=== PATIENT | male | born 1945 | race Caucasian/White ===

== ENCOUNTER 2016-12-01 10:01 | Emergency (ER) | payer MEDICARE ==
[2016-12-01 11:19] VITALS: BP 94/50
--- NOTE | 2016-12-01 11:47 | UC ---
Throat Pain/Nasal Cristóbal HPI - HPI Summary HPI Summary: patient stated he had diarrhea the past few days, but states that he is here because he is having sinus pressure and starting to get s sore throat. spitting up alot of phlegm - History of Current Complaint Chief Complaint: UCRespiratory Stated Complaint: WEAK, CHEST CONGESTION Time Seen by Provider: 12/01/16 11:37 Hx Obtained From: Patient Onset/Duration: Sudden Onset, Lasting Days Severity: Moderate Pain Intensity: 6 Pain Scale Used: 0-10 Numeric Cough: Productive Associated Signs & Symptoms: Positive: Dysphagia, Sinus Discomfort, Nasal Discharge - Epiglottits Risk Factors Epiglottis Risk Factors: Negative - Allergies/Home Medications Allergies/Adverse Reactions: Allergies Allergy/AdvReac Type Severity Reaction Status Date / Time Naproxen [From Aleve] Allergy Unknown Hives Verified 08/23/16 11:18 PMH/Surg Hx/FS Hx/Imm Hx Previously Healthy: Yes Endocrine History Of: Denies: Diabetes, Thyroid Disease Cardiovascular History Of: Reports: Cardiac Disorders - Aug 22 2013, triple bypass, Hypertension, Myocardial Infarction, Congestive Heart Failure Denies: Pacemaker/ICD Respiratory History Of: Reports: COPD, Asthma - Exercise Induced, Bronchitis GI/ History Of: Reports: Ulcer, Gastrointestinal Bleed, Renal Disease - Hx chronic renal disease Psychological History Of: Reports: Anxiety, Depression - Surgical History Surgical History: Yes Surgery Procedure, Year, and Place: 3 Back Surgeries; Open Heart Surgery; Inguinal Hernia Repair. AV Fistuala right forearm. 07/10/2016 blood clot removal right lower arm. 07/14/2016 temp arterial fistula neck, closure of right arm fistula - Family History Known Family History: Positive: None, Other - mother at age 72 from lung cancer, father HD, at 72 - Social History Alcohol Use: Occasionally Alcohol Amount: 4-5 days of week, 2-3 drinks at a time Substance Use Type: None, Prescribed Smoking Status (MU): Former Smoker Type: Cigarettes Amount Used/How Often: quit 06/2013 Length of Time of Smoking/Using Tobacco: 25 YEARS Have You Smoked in the Last Year: No When Did the Patient Quit Smoking/Using Tobacco: 06/2013 - Immunization History Most Recent Influenza Vaccination: 2014 Most Recent Tetanus Shot: 2011 Most Recent Pneumonia Vaccination: 2013 Review of Systems Constitutional: Fever Skin: Negative Eyes: Negative ENT: Sore Throat, Ear Ache, Nasal Discharge Respiratory: Cough Cardiovascular: Negative Gastrointestinal: Negative Genitourinary: Negative Motor: Negative Neurovascular: Negative Musculoskeletal: Negative Neurological: Negative Psychological: Negative All Other Systems Reviewed And Are Negative: Yes Physical Exam Triage Information Reviewed: Yes Appearance: Well-Nourished, Ill-Appearing, Pain Distress Vital Signs: Initial Vital Signs Temp 97.8 F 12/01/16 11:14 Pulse 63 12/01/16 11:14 Resp 16 12/01/16 11:14 BP 94/50 12/01/16 11:14 Pulse Ox 100 12/01/16 11:14 Vital Signs Reviewed: Yes Eye Exam: Normal Eyes: Positive: Conjunctiva Inflamed ENT: Positive: Pharyngeal erythema, Nasal congestion, Nasal drainage, TM bulging , Tonsillar swelling, Tonsillar exudate Dental Exam: Normal Neck exam: Normal Neck: Positive: Supple, Nontender, No Lymphadenopathy Respiratory Exam: Normal Respiratory: Positive: Chest non-tender, Lungs clear, Normal breath sounds, No respiratory distress Cardiovascular Exam: Normal Cardiovascular: Positive: RRR, No Murmur, Pulses Normal Abdomen Description: Positive: Nontender, No Organomegaly, Soft Bowel Sounds: Positive: Present Musculoskeletal Exam: Normal Musculoskeletal: Positive: Strength Intact, ROM Intact, No Edema Neurological: Positive: Alert, Muscle Tone Normal Psychological: Positive: Normal Response To Family Skin Exam: Normal Throat Pain/Nasal Course/Dx - Course Course Of Treatment: hx obtained, medication reviewed, exam performed, medication given for sinusitis - Differential Dx/Diagnosis Differential Diagnosis/HQI/PQRI: Pharyngitis, Sinusitis Provider Diagnoses: sinusitis. pharyngitis Discharge - Discharge Plan Condition: Stable Disposition: HOME Patient Education Materials: Sinusitis (ED) Additional Instructions: take the medication as prescribed. increase your fluid intake. take the medication with food.
== END 2016-12-01 12:20 | disposition home or self-care (01) ==
LOC: UCEAST 10:01
DX: J01.90 Acute sinusitis, unspecified (principal); B96.89 Other specified bacterial agents as the cause of diseases classified elsewhere; J02.9 Acute pharyngitis, unspecified; Z87.891 Personal history of nicotine dependence; I10 Essential (primary) hypertension; Z95.1 Presence of aortocoronary bypass graft; I25.2 Old myocardial infarction
CPT/HCPCS: 99212; G0463

== ENCOUNTER 2016-12-07 11:48 | Emergency (ER) | payer MEDICARE ==
[2016-12-07 13:08] VITALS: BP 104/58
--- NOTE | 2016-12-07 13:25 | UC ---
Respiratory Complaint HPI - HPI Summary HPI Summary: This is a 71 yo male with a h/o CAD and ESRD on HD who presented with c/o cough/ congestion. Patient was seen ~1 week ago [address] a [address] and sinus congestion and received amoxicillin and prednisone for sinusitis and pharyngitis, which he completed. He feels like his symptoms have "settled in his chest". He denies dyspnea. Reports productive cough. No fevers. No GI c/os - History of Current Complaint Chief Complaint: UCRespiratory Stated Complaint: SINUS COMPLAINT - Allergies/Home Medications Allergies/Adverse Reactions: Allergies Allergy/AdvReac Type Severity Reaction Status Date / Time Naproxen [From Aleve] Allergy Unknown Hives Verified 08/23/16 11:18 PMH/Surg Hx/FS Hx/Imm Hx Endocrine History Of: Denies: Diabetes, Thyroid Disease Cardiovascular History Of: Reports: Cardiac Disorders - Aug 22 2013, triple bypass, Hypertension, Myocardial Infarction, Congestive Heart Failure Denies: Pacemaker/ICD Respiratory History Of: Reports: COPD, Asthma - Exercise Induced, Bronchitis GI/ History Of: Reports: Ulcer, Gastrointestinal Bleed, Renal Disease - ESRD on HD Psychological History Of: Reports: Anxiety, Depression - Surgical History Surgical History: Yes Surgery Procedure, Year, and Place: 3 Back Surgeries; Open Heart Surgery; Inguinal Hernia Repair. AV Fistuala right forearm. 07/10/2016 blood clot removal right lower arm. 07/14/2016 temp arterial fistula neck, closure of right arm fistula - Family History Known Family History: Positive: Other - mother at age 72 from lung cancer, father HD, at 72 - Social History Alcohol Use: Occasionally Alcohol Amount: 4-5 days of week, 2-3 drinks at a time Substance Use Type: None, Prescribed Smoking Status (MU): Former Smoker Type: Cigarettes Amount Used/How Often: quit 06/2013 Length of Time of Smoking/Using Tobacco: 25 YEARS Have You Smoked in the Last Year: No When Did the Patient Quit Smoking/Using Tobacco: 06/2013 - Immunization History Most Recent Influenza Vaccination: 2014 Most Recent Tetanus Shot: 2011 Most Recent Pneumonia Vaccination: 2013 Review of Systems Constitutional: Negative Skin: Negative Eyes: Negative ENT: Negative Respiratory: Cough Cardiovascular: Negative Gastrointestinal: Negative Genitourinary: Negative Motor: Negative Neurovascular: Negative Musculoskeletal: Negative Neurological: Negative Psychological: Negative All Other Systems Reviewed And Are Negative: Yes Physical Exam Triage Information Reviewed: Yes Vital Signs: Initial Vital Signs Temp 97.7 F 12/07/16 13:03 Pulse 66 12/07/16 13:03 Resp 16 12/07/16 13:03 BP 104/58 12/07/16 13:03 Pulse Ox 98 12/07/16 13:03 Vital Signs Reviewed: Yes ENT: Positive: Normal ENT inspection Respiratory: Positive: Rhonchi, Wheezing, Other: - lung sounds worse on R posterior camarena. Negative: Crackles Cardiovascular: Positive: RRR, Murmur:Sys:Grade _?_/ - 3 Diagnostic Evaluation - Laboratory O2 Sat by Pulse Oximetry: 98 - Radiology Xray Interpretation: No Acute Changes Radiology Interpretation Completed By: ED Physician, Radiologist Re-Evaluation - Re-Evaluation First Eval Re-Evaluation Time: 14:00 Change: Unchanged Comment: Reviewed results of Xray Respiratory Course/Dx - Course Course Of Treatment: Based on history and lung exam findings with negative CXR, will treat for acute bronchitis with prn albuterol and a medrol dose eliana. No additional abx are indicated, likely a viral process - Differential Dx/Diagnosis Differential Diagnosis/HQI/PQRI: Asthma, Bronchitis, Exacerbation Of COPD, Lower Resp Infection Provider Diagnoses: 1. Acute bronchitis Discharge - Discharge Plan Condition: Stable Disposition: HOME Prescriptions: Albuterol Sulfate [Proventil Hfa] 2 puff IN Q4H PRN #1 aer PRN Reason: cough/SOB Methylprednisolone [Medrol Dosepak 4 MG*] 0 mg PO .SEE ELIANA INSTRUCTION #1 eliana Patient Education Materials: Acute Bronchitis (ED) Referrals: Jimbo Diaz MD [Primary Care Provider] - If Needed Additional Instructions: Activity: As tolerated Instructions: 1. Your chest Xray shows no pneumonia 2. You are being treated for a bronchitis 3. Please take the steroids as directed 4. Use the inhaler as needed if you are coughing, especially before bed
--- NOTE | 2016-12-07 13:44 | RAD ---
INDICATION: Cough and congestion COMPARISON: November 09, 2013 TECHNIQUE: PA and lateral dual-energy views were obtained. FINDINGS: Bones/Soft Tissues: There are no acute bony findings. There is left shoulder arthroplasty. There is sternotomy. Cardiomediastinal: The cardiomediastinal silhouette is normal. Lungs: There are no infiltrates. Pleura: There are no pleural effusions. Other: None IMPRESSION: POSTOPERATIVE CHANGE. NO ACTIVE DISEASE.
== END 2016-12-07 14:10 | disposition home or self-care (01) ==
LOC: UCEAST 11:48
DX: J20.9 Acute bronchitis, unspecified (principal); J44.9 Chronic obstructive pulmonary disease, unspecified; J45.990 Exercise induced bronchospasm; I12.0 Hypertensive chronic kidney disease with stage 5 chronic kidney disease or end stage renal disease; N18.6 End stage renal disease; Z99.2 Dependence on renal dialysis; K28.9 Gastrojejunal ulcer, unspecified as acute or chronic, without hemorrhage or perforation; I25.2 Old myocardial infarction; I25.10 Atherosclerotic heart disease of native coronary artery without angina pectoris; Z95.1 Presence of aortocoronary bypass graft; I50.9 Heart failure, unspecified; F41.9 Anxiety disorder, unspecified; F33.8 Other recurrent depressive disorders; Z87.891 Personal history of nicotine dependence
CPT/HCPCS: 71020; 99201; G0463

== ENCOUNTER 2018-06-06 11:12 | Emergency (ER) | payer MEDICARE ==
--- NOTE | 2018-06-06 12:18 | ED ---
Shortness of Breath - HPI Summary HPI Summary: 72-year-old male presents with shortness of breath for the past couple days. He states shortness breath is worst at night. He denies sleeping on any more pillows than normal. He denies any pain or swelling in his calf muscles. He is on dialysis 3 times a week. He has dialysis done today. States dialysis has not improved his shortness breath. Shortness of breath is also worse with exertion. He has no shortness of breath at rest. No chest pain. No abdominal pain. No nausea or vomiting. Never had this before. He was a smoker for 20 years. He did use his inhaler last night and thinks that it felt better afterwards. No cough. No recent illness. No fevers. He has history of COPD per chart. - History of Current Complaint Chief Complaint: EDShortnessOfBreath Time Seen by Provider: 06/06/18 11:49 - Allergy/Home Medications Allergies/Adverse Reactions: Allergies Allergy/AdvReac Type Severity Reaction Status Date / Time MS Naproxen [From Aleve] Allergy Unknown Hives Verified 08/23/16 11:18 Home Medications: Home Medications Aspirin EC TAB* [Ecotrin EC Low Dose 81 MG*] 81 mg PO DAILY 06/06/18 [History Confirmed 06/06/18] Lanthanum CHEW TAB* [Fosrenol CHEW TAB*] 500 mg PO TID WITH MEALS 06/06/18 [ History Confirmed 06/06/18] Midodrine (NF) 10 mg PO SEE INSTRUCTIONS 06/06/18 [History Confirmed 06/06/18] Pravastatin (NF) [Pravachol (NF)] 20 mg PO QPM 06/06/18 [History Confirmed 06/06] Pravastatin (NF) [Pravachol (NF)] 40 mg PO QPM 06/06/18 [History Confirmed 06/06] Sertraline* [Zoloft*] 25 mg PO DAILY 06/06/18 [History Confirmed 06/06/18] Sertraline* [Zoloft*] 50 mg PO QAM 06/06/18 [History Confirmed 06/06/18] Sevelamer TAB* [Renvela TAB*] 2,400 mg PO TID WITH MEALS 06/06/18 [History Confirmed 06/06/18] Sodium Polystyrene Sulfon/Sorb [Sps] 15 gm PO SEE INSTRUCTIONS 06/06/18 [ History Confirmed 06/06/18] Tamsulosin CAP* [Flomax CAP*] 0.4 mg PO BID 06/06/18 [History Confirmed 06/06/18 ] PMH/Surg Hx/FS Hx/Imm Hx Endocrine/Hematology History: Reports: Hx Blood Transfusions, Hx Anemia Denies: Hx Diabetes, Hx Thyroid Disease Cardiovascular History: Reports: Hx Angina, Hx Congestive Heart Failure, Hx Coronary Artery Disease - S/P TRIPLE BYPASS 08/23/13, Hx Hypercholesterolemia, Hx Hypertension, Hx Myocardial Infarction, Hx Valvular Heart Disease - Mitral valve disorder, Other Cardiovascular Problems/Disorders - Triple Bypass Denies: Hx Pacemaker/ICD Respiratory History: Reports: Hx Asthma - Exercise Induced, Hx Chronic Bronchitis, Hx Chronic Obstructive Pulmonary Disease (COPD), Hx Pleural Effusion - BL, Hx Pulmonary Edema - SMALL POCKET OF FLUID LOWER PORTION OF LUNG , STARTED ZPACK, Hx Seasonal Allergies GI History: Reports: Hx Gastroesophageal Reflux Disease, Hx Gastrointestinal Bleed, Hx Irritable Bowel, Hx Ulcer, Other GI Disorders - Duodenal ulcer repair History: Reports: Hx Acute Renal Failure, Hx Benign Prostatic Hyperplasia, Hx Chronic Renal Failure, Hx Dialysis, Hx Renal Disease - ESRD on HD, Other Problems/Disorders - Bladder Infection Musculoskeletal History: Reports: Hx Arthritis, Hx Back Problems, Hx Orthopedic Injury - Several Fx vertebra between 1-12, Hx Osteoporosis, Other Musculoskeletal History - T12 vertebroplasty/L1 compression fx Sensory History: Reports: Hx Contacts or Glasses - Readings Denies: Hx Hearing Aid Opthamlomology History: Reports: Hx Contacts or Glasses - Readings Neurological History: Reports: Other Neuro Impairments/Disorders - Back surgery x3 Psychiatric History: Reports: Hx Anxiety, Hx Depression Denies: Hx Panic Disorder - Surgical History Surgery Procedure, Year, and Place: 3 Back Surgeries; Open Heart Surgery; Inguinal Hernia Repair. AV Fistuala right forearm. 07/10/2016 blood clot removal right lower arm. 07/14/2016 temp arterial fistula neck, closure of right arm fistula Hx Anesthesia Reactions: No - Immunization History Date of Tetanus Vaccine: Up to Date Date of Influenza Vaccine: Up to Date Infectious Disease History: No Infectious Disease History: Denies: Hx Clostridium Difficile, Hx Hepatitis, Hx Human Immunodeficiency Virus (HIV), Hx of Known/Suspected MRSA, Hx Shingles, Hx Tuberculosis, Hx Known/ Suspected VRE, Hx Known/Suspected VRSA, History Other Infectious Disease, Traveled Outside the [place] in Last 30 Days - Family History Known Family History: Positive: Other - mother at age 72 from lung cancer, father HD, at 72 - Social History Alcohol Use: Occasionally Alcohol Amount: 4-5 days of week, 2-3 drinks at a time Substance Use Type: Reports: None Hx Tobacco Use: Yes Smoking Status (MU): Former Smoker Type: Cigarettes Amount Used/How Often: quit 06/2013 Length of Time of Smoking/Using Tobacco: 25 YEARS Have You Smoked in the Last Year: No Review of Systems Negative: Fever Negative: Chest Pain Positive: Shortness Of Breath. Negative: Cough Negative: Abdominal Pain All Other Systems Reviewed And Are Negative: Yes Physical Exam Triage Information Reviewed: Yes Vital Signs On Initial Exam: Initial Vitals Temp Pulse Resp BP Pulse Ox 98.6 F 71 20 145/66 96 06/06/18 11:17 06/06/18 11:17 06/06/18 11:17 06/06/18 11:17 06/06/18 11:17 Vital Signs Reviewed: Yes Appearance: Positive: Well-Appearing Skin: Positive: Warm, Dry Head/Face: Positive: Normal Head/Face Inspection Eyes: Positive: Normal, EOMI, TOÑO, Conjunctiva Clear ENT: Positive: Pharynx normal Respiratory/Lung Sounds: Positive: Breath Sounds Present, Other - crackles present lower lungs Cardiovascular: Positive: Normal, RRR Abdomen Description: Positive: Nontender, Soft Bowel Sounds: Positive: Present Musculoskeletal: Positive: Normal. Negative: Edema Left - no edema noted, Edema Right - no edema noted Neurological: Positive: Normal Psychiatric: Positive: Normal Diagnostics - Vital Signs Vital Signs Temp Pulse Resp BP Pulse Ox 06/06/18 11:17 98.6 F 71 20 145/66 96 - Laboratory Result Diagrams: 06/06/18 12:02 06/06/18 12:02 Lab Statement: Any lab studies that have been ordered have been reviewed, and results considered in the medical decision making process. - Radiology chest Xray Interpretation: Positive (See Comments) - IMPRESSION: POSTOPERATIVE CHANGES. VASCULAR CONGESTION. FINDINGS SUSPICIOUS FOR RIGHT APICAL LUNG MASS. SUGGEST CT IMAGING OF THE CHEST. Radiology Interpretation Completed By: Radiologist - EKG No standard instances Cardiac Rate: NL EKG Rhythm: Sinus Rhythm ST Segment: Normal EKG Interpretation: normal sinus rhythm EKG Comparison: No Significant Change - improved Course/Dx - Course Course Of Treatment: 72-year-old male presents with shortness of breath for the past couple days. He states shortness breath is worst at night. He denies sleeping on any more pillows than normal. He denies any pain or swelling in his calf muscles. He is on dialysis 3 times a week. He has dialysis done today. States dialysis has not improved his shortness breath. Shortness of breath is also worse with exertion. He has no shortness of breath at rest. No chest pain. No abdominal pain. No nausea or vomiting. Never had this before. He was a smoker for 20 years. He did use his inhaler last night and thinks that it felt better afterwards. No cough. No recent illness. No fevers. On exam decreased breath sounds. Crackles in lower lungs. troponin .04 which is were has been. bnp is 4512 which is more elevated that previous. bp is a little low to give nitro paste. chest xray shows possible mass. CT shows nodule that is suspcious for potenital bronchodenic carcinoma. discussed case with dr smith who saw patient and states that can go homeas no SOB currently. has follow up with dr alvarado this week. patient understand and agrees with plan. - Diagnoses Differential Diagnosis/HQI/PQRI: Positive: Bronchitis, CHF, COPD Exacerbation Provider Diagnoses: Shortness of breath, Lung nodule, End stage renal disease, CHF (congestive heart failure) Discharge - Sign-Out/Discharge Documenting (check all that apply): Patient Departure - Discharge Plan Condition: Good Disposition: HOME Patient Education Materials: Shortness of Breath (ED) Referrals: Jimbo Diaz MD [Primary Care Provider] - Cindy Alvarado MD [Medical Doctor] - Additional Instructions: Follow up with dr Alvarado on Wed at 10:30am Return to ED if develop any new or worsening symptoms - Billing Disposition and Condition Condition: GOOD Disposition: Home
[2018-06-06 12:22] LABS: ABS Basophils 0 10^3/ul (0-0.2); ABS Eosinophils 0 10^3/ul (0-0.6); ABS Lymphocytes 0.7 10^3/ul (1.0-4.8); ABS Monocytes 0.5 10^3/ul (0-0.8); ABS Nucleated RBC 0 10^3/ul; Eosinophil % 1.2 % (0-6); Hematocrit 31 % (42-52); Hemoglobin 10.2 g/dl (14.0-18.0); Lymphocyte % 21.7 % (25-47); Mean Corpuscular HGB Conc 33 g/dl (31-36); Mean Corpuscular Hemoglobin 30 pg (27-31); Mean Corpuscular Volume 91 fL (80-94); Mean Platelet Volume 7.9 um3 (7.4-10.4); Nucleated Red Blood Cells % 0.1; Platelet Count 120 10^3/ul (150-450); Red Blood Count 3.38 10^6/ul (4.00-5.40); Red Cell Distribution Width 17 % (10.5-15); White Blood Count 3.3 10^3/ul (3.5-10.8)
[2018-06-06 12:46] LABS: EGFR Non-African American 13.2 (>60)
--- NOTE | 2018-06-06 12:50 | RAD ---
INDICATION: Short of breath COMPARISON: December 07, 2016 TECHNIQUE: PA and lateral dual-energy views were obtained. FINDINGS: Bones/Soft Tissues: There are no acute bony findings. There is sternotomy/CABG. There is left shoulder arthroplasty. Cardiomediastinal: The heart is normal in size. The interstitium is prominent consistent with interstitial congestion.. Lungs: There are findings suspicious for a new, 1.6 cm lung mass. There is no focal consolidation. Diffuse interstitial change. Pleura: There are no pleural effusions. Other: None IMPRESSION: POSTOPERATIVE CHANGES. VASCULAR CONGESTION. FINDINGS SUSPICIOUS FOR RIGHT APICAL LUNG MASS. SUGGEST CT IMAGING OF THE CHEST.
--- NOTE | 2018-06-06 13:56 | RAD ---
INDICATION: Shortness of breath. Concern for potential RIGHT apical lung mass. COMPARISON: June 06, 2018 chest radiograph. TECHNIQUE: Multidetector CT images were obtained from the lung apices to the upper abdomen. Evaluation of the viscera is limited without IV contrast. REPORT: Corresponding with the radiographic finding there is a 1.9 cm maximum dimension spiculated nodule at the apical segment of the RIGHT upper lobe suspicious for a potential bronchogenic carcinoma. No additional suspicious focal pulmonary lesions. Small bilateral dependent pleural effusions with proportional atelectasis. Negative for pneumothorax. Mildly enlarged 1.2 cm short axis subcarinal lymph node. Negative for cardiomegaly. Postsurgical change of coronary artery bypass. Negative for pericardial effusion. Images through the upper abdomen demonstrate normal morphology of the adrenal glands. Moderately severe bilateral renal cortical atrophy and multiple renal cysts noted. Multiple chronic appearing thoracic osteoporotic biconcave compression fractures. Postsurgical change of vertebroplasty at the T12 and L1 levels. No definitive acute thoracic fractures evident. IMPRESSION: #. Corresponding with the radiographic finding there is a 1.9 cm maximum dimension spiculated nodule at the apical segment of the RIGHT upper lobe suspicious for a potential bronchogenic carcinoma. Consider PET CT for further assessment. #. Mildly enlarged subcarinal lymph node.
[2018-06-06 15:04] VITALS: BP 116/76
--- NOTE | 2018-06-06 21:48 | CONS ---
CC: Dr. Diaz; Dr. Tavares * CONSULTATION REPORT: DATE OF CONSULT: 06/06/18 - EMERGENCY DEPT PRIMARY CARE PROVIDER: Dr. Diaz. YARN SIZER: Dr. Tavares. CHIEF COMPLAINT: Shortness of breath. HISTORY OF PRESENT ILLNESS: Mr. Warren is a 72-year-old male who was at dialysis when he mentioned that he was short of breath. Oxygen was applied. He states he felt somewhat better after this. The patient ultimately presented to the emergency room for evaluation of his shortness of breath, but states, " It was not that bad." The patient underwent a CAT scan of the chest in the ER, which revealed a 1.9 cm speculated nodule at the apical segment of the right upper lobe suspicious for a potential bronchogenic carcinoma. A mildly enlarged subcarinal lymph node was also noted. The hospitalist service was asked to see the patient for potential admission. In evaluating the patient, he states that he feels quite good. In fact, he does not want to come into the hospital at this point. The patient states that his shortness of breath is essentially resolved at this point. He is quite concerned about the nodule seen on CAT scan and hopes to have this evaluated quite quickly. PAST MEDICAL HISTORY: Reviewed from prior documentation. SOCIAL HISTORY: The patient is a former smoker. He has approximately 40 to 60 pack-year history of smoking. He quit approximately 5 years ago. PHYSICAL EXAM: Blood pressure 116/76, pulse 68, respirations 15, temp 98.1, O2 sat 92% on room air. General: The patient is a well-developed, elderly male seen sitting up in the stretcher, completely comfortable, not tachypneic and in no acute distress. DIAGNOSTIC STUDIES/LAB DATA: EKG reveals normal sinus rhythm with probable LVH , otherwise negative for acute ST, T-wave abnormalities. Chest x-ray, postoperative changes with vascular congestion. Finding suspicious for right apical lung mass. CT imaging of the chest is recommended. CT chest, there is a 1.9 cm maximum dimension speculated nodule at the apical segment of the right upper lobe suspicious for a potential bronchogenic carcinoma. Consider PET/CT for further assessment. Mildly enlarged subcarinal lymph node is also noted. ASSESSMENT AND PLAN: Mr. Warren is a 72-year-old male with a history of end- stage renal disease, benign prostatic hypertrophy, hyperlipidemia, and depression, who was seen today in the emergency room for initially complaints of shortness of breath, which has essentially now resolved with a new finding of a right apical lung nodule. 1. Shortness of breath. This has essentially resolved. The patient states that he feels comfortable and would like to go home. 2. Speculated lung nodule at the right apex. I spoke with Dr. Curran from Pulmonology, who reviewed the patient's imaging. She felt that he would be an EBUS candidate. The Pulmonology office contacted me in the emergency room and provided an appointment date and time for tomorrow at 10:30 a.m. The patient will meet with Dr. Curran at that point and she will review his history and imaging with him. He will then be set up for EBUS next week. The patient is very happy with this plan. 3. The patient is being discharged home from the emergency room. TIME SPENT: 30 minutes were spent on this consultation and arranging followup with Dr. Curran. [id number]/[facility] #: [id number] NIKKIE
== END 2018-06-06 15:13 | disposition home or self-care (01) ==
LOC: ED 11:12
DX: R06.02 Shortness of breath (principal); R91.1 Solitary pulmonary nodule; I13.2 Hypertensive heart and chronic kidney disease with heart failure and with stage 5 chronic kidney disease, or end stage renal disease; I50.9 Heart failure, unspecified; N18.6 End stage renal disease; Z87.898 Personal history of other specified conditions; J44.9 Chronic obstructive pulmonary disease, unspecified; Z99.2 Dependence on renal dialysis; Z86.718 Personal history of other venous thrombosis and embolism; Z80.1 Family history of malignant neoplasm of trachea, bronchus and lung; Z95.1 Presence of aortocoronary bypass graft; Z88.6 Allergy status to analgesic agent
CPT/HCPCS: 36415; 71046; 71250; 80053; 83605; 83880; 84484; 85025; 86140; 87040; 93005; 99282

== ENCOUNTER 2018-06-15 11:31 | Day surgery (SDC) | payer MEDICARE ==
[~2018-06-15 11:31] MED LIST: Buffered Lidocaine 0.9% SYRIN* 5 ML/SYR SYRINGE INTRADERM ONE; Famotidine IV* 10 MG/ML 2 ML (20 mg) IV ONE; Midazolam* 1 MG/ML 2 ML VIAL (2 MG) ONE; Rocuronium* 10 MG/ML VIAL ONE; Sodium Citrate/Citric Acid* 15 ML UDC PO ONE; fentaNYL* 50 MCG/ML 2 ML VIAL (100 MCG VIAL) ONE
[2018-06-15] MEDS ORDERED: Famotidine IV* 10 MG/ML 2 ML (20 mg) ONE (11:53)
[2018-06-15] MEDS ORDERED: Sodium Citrate/Citric Acid* 15 ML UDC ONE (11:53)
[2018-06-15] MEDS ORDERED: Cisatracurium* 2 MG/ML MDV 5 ML ONE (12:35)
[2018-06-15] MEDS ORDERED: HYDROmorphone INJ* 0.5 MG/0.5 ML SYRINGE IV PRN (13:20)
[2018-06-15] MEDS ORDERED: oxyCODONE TAB* 5 MG TAB PO PRN (13:20)
[2018-06-15] MEDS ORDERED: Naloxone* 0.4 MG/ML 1 ML VIAL IV PRN (13:20)
[2018-06-15] MEDS ORDERED: fentaNYL* 50 MCG/ML 2 ML VIAL (100 MCG VIAL) IV PRN (13:20)
[2018-06-15] MEDS ORDERED: Ondansetron INJ* 2 MG/ML VIAL IV PRN (13:20)
[2018-06-15] MEDS ORDERED: Phenylephrine IV* 40 MCG/ML 10 ML SYRINGE ONE (14:39)
[2018-06-15] MEDS ORDERED: Sterile Water for Inj* 10 ML ONE (14:39)
[2018-06-15] MEDS ORDERED: EPHEDrine (Pressors)* 50 MG/ML VIAL ONE (14:39)
[2018-06-15 16:08] VITALS: BP 107/54
--- NOTE | 2018-06-16 06:31 | PRO ---
BRONCHOSCOPY REPORT: DATE OF PROCEDURE: 06/15/18 [facility] PROCEDURE PERFORMED BY: Cindy Curran MD ANESTHESIA: General anesthesia. ANESTHESIOLOGIST: Dr. Angely Wang. PROCEDURE PERFORMED: Bronchoscopy with endobronchial ultrasound-guided fine needle aspiration from station 7, L4 and R4 lymph nodes. PREPROCEDURAL DIAGNOSES: Lung nodule, mediastinal adenopathy, rule out malignancy. POSTPROCEDURAL DIAGNOSIS: Mediastinal adenopathy. DESCRIPTION OF PROCEDURE: Informed consent was obtained from the patient prior to the procedure after all the risks and benefits were thoroughly explained. The patient recently had a CT scan suggestive of lung nodule and enlarged lymph nodes. Bronchoscopy was scheduled for evaluation of lymphadenopathy. The patient was intubated with size 8.5 endotracheal tube. A flexible Olympus bronchoscope was inserted through ET tube for airway inspection. No endobronchial lesions were noted. Thick white secretions were noted and were suctioned. Bronchoscope was then withdrawn and EBUS bronchoscope was inserted. Station 7 node was enlarged and was sampled with 4 passes. Rapid on-site evaluation revealed lymphatic tissue with no suspicious cells. Station L4 was sampled with 2 passes. Rapid on-site evaluation revealed bronchial cells. No lymphatic tissue was noted. Station R4 lymph node was then accessed with 6 passes. Rapid on-site evaluation revealed blood in most of the passes. No lymphatic tissue was noted on rapid on-site exam. Rest of specimen was placed in CytoLyt. The patient tolerated the procedure well. The patient was extubated and seen in Recovery in optimal condition. We will follow final results. [id number] #: [id number] [facility]
== END 2018-06-15 16:10 | disposition home or self-care (01) ==
LOC: OR 11:31
PROVIDERS: ATTEND Internal Medicine
DX: R59.0 Localized enlarged lymph nodes (principal); R91.8 Other nonspecific abnormal finding of lung field; J98.4 Other disorders of lung; J44.9 Chronic obstructive pulmonary disease, unspecified; Z95.1 Presence of aortocoronary bypass graft; F41.8 Other specified anxiety disorders; E78.5 Hyperlipidemia, unspecified; I12.9 Hypertensive chronic kidney disease with stage 1 through stage 4 chronic kidney disease, or unspecified chronic kidney disease; Z87.891 Personal history of nicotine dependence; I25.10 Atherosclerotic heart disease of native coronary artery without angina pectoris; N18.5 Chronic kidney disease, stage 5; Z99.2 Dependence on renal dialysis; D64.9 Anemia, unspecified; D69.6 Thrombocytopenia, unspecified; Z86.718 Personal history of other venous thrombosis and embolism
CPT/HCPCS: 88172; 88173; 88177; 88305; A9270-GY; J2250; J3010

== ENCOUNTER → 2018-11-25 10:34 | Emergency (ER) | payer MEDICARE ==
--- NOTE | 2018-11-25 11:30 | ED ---
Laceration/Wound HPI - HPI Summary HPI Summary: Patient is a 73-year-old male with history of renal failure presented to the ED with right upper arm fistula bleeding 1 hour at dialysis. He arrives with a hemostat clamp. He states they have been applying pressure 1 hour good relief. He states this happened in the past, however has not needed sutures. On arrival, bleeding is well-controlled. He denies any other symptoms or complaints at this time. - History of Current Complaint Stated Complaint: RT ARM LACERATION Time Seen by Provider: 11/25/18 10:43 Hx Obtained From: Patient Onset/Duration: Sudden Onset Aggravating: Movement Alleviating: Compression Timing: Constant Onset Severity: Mild Current Severity: None Pain Intensity: 0 Pain Scale Used: 0-10 Numeric - Additional Pertinent History Primary Care Physician: EZEKIEL - Allergy/Home Medications Allergies/Adverse Reactions: Allergies Allergy/AdvReac Type Severity Reaction Status Date / Time naproxen Allergy Intermediate Hives Verified 11/25/18 10:43 PMH/Surg Hx/FS Hx/Imm Hx Previously Healthy: Yes - renal failure Endocrine/Hematology History: Reports: Hx Blood Transfusions, Hx Diabetes, Hx Anemia Denies: Hx Thyroid Disease Cardiovascular History: Reports: Hx Angina, Hx Congestive Heart Failure, Hx Coronary Artery Disease - S/P TRIPLE BYPASS 08/23/13, Hx Hypercholesterolemia, Hx Hypertension, Hx Myocardial Infarction, Hx Valvular Heart Disease - Mitral valve disorder, Other Cardiovascular Problems/Disorders - Triple Bypass Denies: Hx Pacemaker/ICD Respiratory History: Reports: Hx Asthma - Exercise Induced IN THE PAST- NONE NOW , Hx Chronic Bronchitis, Hx Chronic Obstructive Pulmonary Disease (COPD), Hx Lung Cancer, Hx Pleural Effusion - BL, Hx Pulmonary Edema - SMALL POCKET OF FLUID LOWER PORTION OF LUNG, STARTED ZPACK, Hx Seasonal Allergies GI History: Reports: Hx Gastroesophageal Reflux Disease, Hx Gastrointestinal Bleed, Hx Irritable Bowel, Hx Ulcer, Other GI Disorders - Duodenal ulcer repair History: Reports: Hx Acute Renal Failure, Hx Benign Prostatic Hyperplasia, Hx Chronic Renal Failure, Hx Dialysis, Hx Renal Disease - ESRD on HD, Other Problems/Disorders - Bladder Infection Musculoskeletal History: Reports: Hx Arthritis, Hx Back Problems, Hx Orthopedic Injury - Several Fx vertebra between 1-12, Hx Osteoporosis, Other Musculoskeletal History - T12 vertebroplasty/L1 compression fx Sensory History: Denies: Hx Contacts or Glasses, Hx Hearing Aid Opthamlomology History: Denies: Hx Contacts or Glasses Neurological History: Reports: Other Neuro Impairments/Disorders - Back surgery x3 Psychiatric History: Reports: Hx Anxiety, Hx Depression Denies: Hx Panic Disorder - Cancer History Cancer Type, Location and Year: right lung with lobectomy upper lobe Hx Chemotherapy: No Hx Radiation Therapy: No - Surgical History Surgery Procedure, Year, and Place: 3 Back Surgeries ; Open Heart Surgery 2012; left Inguinal Hernia Repair 2010. AV Fistuala right forearm. blood clot removal right lower arm. 07/14/2016 temp arterial fistula neck, closure of right arm fistula. left shoulder repair 03/2016. TONSILLECTOMY Hx Anesthesia Reactions: No - Immunization History Date of Tetanus Vaccine: Up to Date Date of Influenza Vaccine: Up to Date Hx Pertussis Vaccination: No Immunizations Up to Date: Yes Infectious Disease History: No Infectious Disease History: Denies: Hx Clostridium Difficile, Hx Hepatitis, Hx Human Immunodeficiency Virus (HIV), Hx of Known/Suspected MRSA, Hx Shingles, Hx Tuberculosis, Hx Known/ Suspected VRE, Hx Known/Suspected VRSA, History Other Infectious Disease, Traveled Outside the in Last 30 Days - Family History Known Family History: Positive: Other - mother at age 72 from lung cancer, father HD, at 72 - Social History Occupation: Unemployed Lives: With Family Alcohol Use: Rare Alcohol Amount: 1-2 wine a week Hx Substance Use: No Substance Use Type: Reports: None Hx Tobacco Use: Yes Smoking Status (MU): Former Smoker Type: Cigarettes Amount Used/How Often: smoked for 20 years 1.5ppd Length of Time of Smoking/Using Tobacco: 25 YEARS Have You Smoked in the Last Year: No Review of Systems Negative: Fever, Chills, Fatigue Negative: Palpitations, Chest Pain Negative: Shortness Of Breath, Cough Genitourinary: Negative Positive: no symptoms reported, see HPI Negative: Arthralgia, Myalgia Positive: Other - fistula in R upper arm - no bleeding Neurological: Negative All Other Systems Reviewed And Are Negative: Yes Physical Exam Triage Information Reviewed: Yes Vital Signs On Initial Exam: Initial Vitals Temp Pulse Resp BP Pulse Ox 97.4 F 66 14 142/66 98 11/25/18 10:42 11/25/18 10:42 11/25/18 10:42 11/25/18 10:42 11/25/18 10:42 Vital Signs Reviewed: Yes Appearance: Positive: Well-Nourished Skin: Positive: Warm, Skin Color Reflects Adequate Perfusion Head/Face: Positive: Normal Head/Face Inspection Eyes: Positive: EOMI Neck: Positive: Supple, No Lymphadenopathy Respiratory/Lung Sounds: Positive: Clear to Auscultation, Breath Sounds Present Cardiovascular: Positive: Pulses are Symmetrical in both Upper and Lower Extremities. Negative: Leg Edema Left, Leg Edema Right Musculoskeletal: Positive: Normal, Strength/ROM Intact Neurological: Positive: Alert, Oriented to Person Place, Time, Speech Normal Psychiatric: Positive: Affect/Mood Appropriate AVPU Assessment: Alert Diagnostics - Vital Signs Vital Signs Temp Pulse Resp BP Pulse Ox 11/25/18 10:54 155/100 11/25/18 10:42 97.4 F 66 14 142/66 98 - Laboratory Lab Statement: Any lab studies that have been ordered have been reviewed, and results considered in the medical decision making process. Laceration Repair Course/Dx - Course Course Of Treatment: On arrival, bleeding is controlled. [place] bandaged 20 minutes. Upon recheck, bleeding continues to be well controlled. He will be discharged home. He is given return precautions for bleeding remains. - Clinical Impression Provider Diagnoses: Hemorrhage of arteriovenous fistula Discharge - Sign-Out/Discharge Documenting (check all that apply): Patient Departure - Discharge Plan Condition: Stable Disposition: HOME Referrals: Jimbo Diaz MD [Primary Care Provider] - Additional Instructions: If bleeding begins - gauze wrap with [place] bandage - applied tight x 30 minutes If this bleeds through or continues to bleed despite this measure - return to the ED - Billing Disposition and Condition Condition: STABLE Disposition: Home
[2018-11-25 11:43] VITALS: BP 138/91
== END | disposition home or self-care (01) ==
LOC: ED 10:34
DX: I77.0 Arteriovenous fistula, acquired (principal); Z87.891 Personal history of nicotine dependence; Z85.118 Personal history of other malignant neoplasm of bronchus and lung
CPT/HCPCS: 99283

== ENCOUNTER 2018-12-23 18:50 | Emergency (ER) | payer MEDICARE ==
[2018-12-23 19:17] VITALS: BP 139/73
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
== END 2018-12-23 19:40 | disposition home or self-care (01) ==
LOC: UCEAST 18:50
DX: L76.34 Postprocedural seroma of skin and subcutaneous tissue following other procedure (principal); N18.6 End stage renal disease; Z99.2 Dependence on renal dialysis; Z88.6 Allergy status to analgesic agent; Z88.8 Allergy status to other drugs, medicaments and biological substances; Z87.891 Personal history of nicotine dependence
CPT/HCPCS: 99212; G0463

== ENCOUNTER 2019-03-06 09:53 | Emergency (ER) | payer MEDICARE ==
[2019-03-06 11:12] VITALS: BP 131/84
--- NOTE | 2019-03-06 11:32 | UC ---
FLU HPI - HPI Summary HPI Summary: 73-year-old male presents with complaints of 2 day history of a nonproductive cough. States he was at dialysis earlier today and they noted that his temperature went from 96 F to 98 F. He is noted some chills over the past 2 days. Denies nasal congestion, nasal discharge, sore throat, chest pain, shortness of breath, abdominal pain, nausea, or vomiting. - History of Current Complaint Chief Complaint: UCGeneralIllness Stated Complaint: CONGESTION / FEVER Time Seen by Provider: 03/06/19 11:26 Hx Obtained From: Patient Pain Intensity: 0 - Allergy/Home Medications Allergies/Adverse Reactions: Allergies Allergy/AdvReac Type Severity Reaction Status Date / Time metoprolol Allergy Intermediate See Comment Verified 03/06/19 11:01 naproxen Allergy Intermediate Hives Verified 03/06/19 11:01 PMH/Surg Hx/FS Hx/Imm Hx Endocrine History: Dyslipidemia Cardiovascular History: Cardiac Disease, Hypertension, Myocardial Infarction GI/ History: Renal Disease - Surgical History Surgical History: Yes Surgery Procedure, Year, and Place: 3 Back Surgeries ; Open Heart Surgery 2012; left Inguinal Hernia Repair 2010. AV Fistuala right forearm. blood clot removal right lower arm. 07/14/2016 temp arterial fistula neck, closure of right arm fistula. left shoulder repair 03/2016. TONSILLECTOMY - Family History Known Family History: Positive: Other - mother at age 72 from lung cancer, father HD, at 72 - Social History Occupation: Works From/At Home Lives: Alone Alcohol Use: Weekly Alcohol Amount: a couple of glasses of wine 3-4 nights a week Substance Use Type: None Smoking Status (MU): Former Smoker Type: Cigarettes Amount Used/How Often: smoked for 20 years 1.5ppd Length of Time of Smoking/Using Tobacco: 25 YEARS Have You Smoked in the Last Year: No When Did the Patient Quit Smoking/Using Tobacco: 06/2013 - Immunization History Most Recent Influenza Vaccination: 2017 Most Recent Tetanus Shot: 2011 Most Recent Pneumonia Vaccination: 2013 Review of Systems All Other Systems Reviewed And Are Negative: Yes Constitutional: Positive: Chills. Negative: Fever Eyes: Negative: Drainage, Eye Redness ENT: Negative: Sore Throat, Ear Ache, Nasal Discharge, Sinus Congestion, Sinus Pain/Tenderness Respiratory: Positive: Cough. Negative: Shortness Of Breath Cardiovascular: Negative: Palpitations, Chest Pain Gastrointestinal: Negative: Abdominal Pain, Vomiting, Diarrhea, Nausea Genitourinary: Positive: Negative Musculoskeletal: Positive: Negative Neurological: Positive: Negative Is Patient Immunocompromised?: No Physical Exam - Summary Physical Exam Summary: GENERAL APPEARANCE: Well developed, well nourished, alert and cooperative, and appears to be in no acute distress. EYES: Conjunctiva clear. No drainage. EARS: External auditory canals and tympanic membranes clear, hearing grossly intact. NOSE: No nasal congestion or discharge. THROAT: Pharynx normal. Tonsils surgically absent. Uvula midline. NECK: Neck supple, non-tender without lymphadenopathy. CARDIAC: Normal S1 and S2. No S3, S4 or murmurs. Rhythm is regular. There is no peripheral edema, cyanosis or pallor. Extremities are warm and well perfused. Capillary refill is less than 2 seconds. Peripheral pulses intact. LUNGS: Clear to auscultation without rales, rhonchi, wheezing or diminished breath sounds. Dry, non-productive cough. ABDOMEN: Positive bowel sounds. Soft, nondistended, nontender. No guarding or rebound. No masses or hepatosplenomegally. MUSKULOSKELETAL: ROM intact to all extremities. No joint erythema or tenderness. Normal muscular development. Normal gait. SKIN: Skin normal color, texture and turgor with no lesions or eruptions. Triage Information Reviewed: Yes Vital Signs: Initial Vital Signs Temp 99 F 03/06/19 11:05 Pulse 70 03/06/19 11:05 Resp 20 03/06/19 11:05 BP 131/84 03/06/19 11:05 Pulse Ox 99 03/06/19 11:05 Vital Signs Reviewed: Yes Diagnostics - Radiology No standard instances Radiology Interpretation Completed By: Radiologist Summary of Radiographic Findings: Order Information: CHEST PA LAT 2 S. Accession Number: [id number]. CPT: 09148. HISTORY: cough. COMPARISONS: October 11, 2013. VIEWS: 4: Frontal dual-energy and lateral views of the chest. FINDINGS: CARDIOMEDIASTINAL SILHOUETTE: The cardiomediastinal silhouette is normal. GUSTAVO: The gustavo are normal. PLEURA: The costophrenic angles are sharp. No pleural abnormalities are noted. LUNG PARENCHYMA: The lungs are clear. ABDOMEN: The upper abdomen is clear. There is no subphrenic gas. BONES AND SOFT TISSUES: The patient is status post median sternotomy, left shoulder arthroplasty, and percutaneous vertebral augmentation. OTHER: None. IMPRESSION: NO ACTIVE CARDIOPULMONARY DISEASE. Flu Course/Dx - Course Course Of Treatment: 73-year-old male presents with complaints of 2 day history of a nonproductive cough. States he was at dialysis earlier today and they noted that his temperature went from 96 F to 98 F. He is noted some chills over the past 2 days. Denies nasal congestion, nasal discharge, sore throat, chest pain, shortness of breath, abdominal pain, nausea, or vomiting. Afebrile. Vital signs stable. Exam was unremarkable except for a dry, nonproductive cough. Chest x-ray showed no acute cardiopulmonary disease. Rapid flu was negative. Recommending symptomatic treatment for an acute bronchitis. He is to follow-up with his primary care provider in 3-5 days if symptoms do not improve. Anticipatory guidance and warning symptoms were reviewed with the patient. Verbalizes understanding and agrees with plan of care. - Differential Dx/Diagnosis Differential Diagnosis/HQI/PQRI: Bronchitis, Influenza, Pneumonia, Upper Respiratory Infection Provider Diagnosis: Acute bronchitis Discharge - Sign-Out/Discharge Documenting (check all that apply): Patient Departure All imaging exams completed and their final reports reviewed: Yes - Discharge Plan Condition: Stable Disposition: HOME Prescriptions: Benzonatate CAP* [Tessalon 100 MG CAP*] 100 mg PO TID PRN #30 cap PRN Reason: Cough Patient Education Materials: Acute Bronchitis (ED) Referrals: Jimbo Diaz MD [Primary Care Provider] - 3 Days Additional Instructions: The chest x-ray performed in the clinic today showed no evidence of pneumonia. Your history and exam are consistent with acute bronchitis which is most often caused by a viral infection. Viral infections do not respond to antibiotics and are limited to the treatment of symptoms. Viral infections typically run their course in 7-10 days. Be aware that the cough with bronchitis may persist for 2-3 weeks even if other symptoms have improved. Get plenty of rest. Drink plenty of fluids. Run a cool mist humidifer in your room at night. Take over the counter acetaminophen (Tylenol) or ibuprofen (Advil, Motrin) according to directions as needed for pain or fever. Take Tessalon Perles 1 cap every 8 hours as needed for cough. Follow up with your primary care provider in 3-5 days if symptoms do not improve. Seek immediate medical attention in the emergency room if you have fever greater than 100.5 F despite taking acetaminophen or ibuprofen, have chest pain , difficulty breathing, or have any worsening of symptoms. - Billing Disposition and Condition Condition: STABLE Disposition: Home - Attestation Statements Provider Attestation: Per institutional requirements, I have reviewed the chart, however, I was not consulted specifically or made aware of this patient by the midlevel provider. I did not personally evaluate, interact with , or disposition this patient.
[2019-03-06 11:41] LABS: Influenza A Molecular NEGATIVE (Negative); Influenza B Molecular NEGATIVE (Negative)
== END 2019-03-06 12:50 | disposition home or self-care (01) ==
LOC: UCEAST 09:53
DX: J20.9 Acute bronchitis, unspecified (principal); E78.5 Hyperlipidemia, unspecified; I13.10 Hypertensive heart and chronic kidney disease without heart failure, with stage 1 through stage 4 chronic kidney disease, or unspecified chronic kidney disease; N18.9 Chronic kidney disease, unspecified; Z99.2 Dependence on renal dialysis; I25.2 Old myocardial infarction; I11.9 Hypertensive heart disease without heart failure; Z88.6 Allergy status to analgesic agent; Z88.8 Allergy status to other drugs, medicaments and biological substances; Z87.891 Personal history of nicotine dependence
CPT/HCPCS: 71046; 99212; G0463

== ENCOUNTER 2019-03-27 10:14 | Emergency (ER) | payer MEDICARE ==
--- NOTE | 2019-03-27 10:55 | ED ---
Complex/Multi-Sys Presentation - HPI Summary HPI Summary: Patient is a 73 y/o M presenting to ED with complaints of bleeding from right fistula. He was at hemodialysis today for treatment when bleeding onset. Patient 's female chiller tender who is present in the room states that bleeding had onset around 50 minutes ago, patient was advised to come to ED for evaluation. He denies dizziness, light-headedness and right hand pain. There is a clamp placed at fistula site. PMHx of diabetes, anemia, angina, CHF, CAD, HLD, HTN, DC, asthma, lung cancer, GERD, GI bleed, acute renal failure, benign prostatic hyperplasia, arthritis, osteoporosis, anxiety, depression. PSHx of back surgery x3, open heart surgery 2013, left inguinal hernia repair, blood clot removal right lower arm. FMHx of lung cancer. He reports weekly alcohol usage, denies substance usage, patient is a former smoker. On triage, pain is denied, nothing is noted to aggravate/alleviate Sx. Home medications and allergies are reviewed. - History Of Current Complaint Chief Complaint: EDBleedingDisorder Hx Obtained From: Patient, Family/Coordinator Of Library Services Onset/Duration: Lasting Minutes - onset around 50 minutes ago, Still Present Timing: Constant, Minutes - onset around 50 minutes ago Severity Currently: None - pain denied Aggravating Factor(s): nothing Alleviating Factor(s): nothing Associated Signs And Symptoms: Positive: Other - POSITIVE - BLEEDING AT RIGHT ARM FISTULA; NEGATIVE - LEFT HAND PAIN, LIGHT-HEADEDNESS. Negative: Dizziness - Allergies/Home Medications Allergies/Adverse Reactions: Allergies Allergy/AdvReac Type Severity Reaction Status Date / Time metoprolol Allergy Intermediate See Comment Verified 03/06/19 11:01 naproxen Allergy Intermediate Hives Verified 03/06/19 11:01 PMH/Surg Hx/FS Hx/Imm Hx Endocrine/Hematology History: Reports: Hx Blood Transfusions, Hx Diabetes, Hx Anemia Denies: Hx Thyroid Disease Cardiovascular History: Reports: Hx Angina, Hx Congestive Heart Failure, Hx Coronary Artery Disease - S/P TRIPLE BYPASS 08/23/13, Hx Hypercholesterolemia, Hx Hypertension, Hx Myocardial Infarction, Hx Valvular Heart Disease - Mitral valve disorder, Other Cardiovascular Problems/Disorders - Triple Bypass Denies: Hx Pacemaker/ICD Respiratory History: Reports: Hx Asthma - Exercise Induced IN THE PAST- NONE NOW , Hx Chronic Bronchitis, Hx Lung Cancer, Hx Pleural Effusion - BL, Hx Pulmonary Edema - SMALL POCKET OF FLUID LOWER PORTION OF LUNG, STARTED ZPACK, Hx Seasonal Allergies Denies: Hx Chronic Obstructive Pulmonary Disease (COPD) GI History: Reports: Hx Gastroesophageal Reflux Disease, Hx Gastrointestinal Bleed, Hx Irritable Bowel, Hx Ulcer, Other GI Disorders - Duodenal ulcer repair History: Reports: Hx Acute Renal Failure, Hx Benign Prostatic Hyperplasia, Hx Chronic Renal Failure, Hx Dialysis, Hx Renal Disease - ESRD on HD, Other Problems/Disorders - Bladder Infection Musculoskeletal History: Reports: Hx Arthritis, Hx Back Problems, Hx Orthopedic Injury - Several Fx vertebra between 1-12, Hx Osteoporosis, Other Musculoskeletal History - T12 vertebroplasty/L1 compression fx Sensory History: Denies: Hx Contacts or Glasses Opthamlomology History: Denies: Hx Contacts or Glasses Neurological History: Reports: Other Neuro Impairments/Disorders - Back surgery x3 Psychiatric History: Reports: Hx Anxiety, Hx Depression Denies: Hx Panic Disorder - Cancer History Cancer Type, Location and Year: right lung with lobectomy upper lobe Hx Chemotherapy: No Hx Radiation Therapy: No - Surgical History Surgery Procedure, Year, and Place: 3 Back Surgeries ; Open Heart Surgery 2012; left Inguinal Hernia Repair 2010. AV Fistuala right forearm. blood clot removal right lower arm. 07/14/2016 temp arterial fistula neck, closure of right arm fistula. left shoulder repair 03/2016. TONSILLECTOMY Hx Anesthesia Reactions: No - Immunization History Date of Tetanus Vaccine: Up to Date Date of Influenza Vaccine: Up to Date Infectious Disease History: No Infectious Disease History: Denies: Hx Clostridium Difficile, Hx Hepatitis, Hx Human Immunodeficiency Virus (HIV), Hx of Known/Suspected MRSA, Hx Shingles, Hx Tuberculosis, Hx Known/ Suspected VRE, Hx Known/Suspected VRSA, History Other Infectious Disease, Traveled Outside the [place] in Last 30 Days - Family History Known Family History: Positive: Other - mother at age 72 from lung cancer, father HD, at 72 - Social History Alcohol Use: Weekly Alcohol Amount: a couple of glasses of wine 3-4 nights a week Hx Substance Use: No Substance Use Type: Reports: None Hx Tobacco Use: Yes Smoking Status (MU): Former Smoker Type: Cigarettes Amount Used/How Often: smoked for 20 years 1.5ppd Length of Time of Smoking/Using Tobacco: 25 YEARS Have You Smoked in the Last Year: No Review of Systems Constitutional: Other - POSITIVE - RIGHT ARM BLEEDING AT FISTULA SITE Musculoskeletal: Other - NEGATIVE - LEFT HAND PAIN Neurological: Other - NEGATIVE - DIZZINESS, LIGHT-HEADEDNESS All Other Systems Reviewed And Are Negative: Yes Physical Exam - Summary Physical Exam Summary: VITAL SIGNS: Reviewed. GENERAL: Patient is a well-developed and nourished male who is lying comfortable in the stretcher. Patient is not in any acute respiratory distress. HEAD AND FACE: No signs of trauma. No ecchymosis, hematomas or skull depressions. No sinus tenderness. EYES: PERRLA, EOMI x 2, No injected conjunctiva, no nystagmus. EARS: Hearing grossly intact. Ear canals and tympanic membranes are within normal limits. MOUTH: Oropharynx within normal limits. NECK: Supple, trachea is midline, no adenopathy, no JVD, no carotid bruit, no c- spine tenderness, neck with full ROM. CHEST: Symmetric, no tenderness at palpation LUNGS: Clear to auscultation bilaterally. No wheezing or crackles. CVS: Regular rate and rhythm, S1 and S2 present, no murmurs or gallops appreciated. ABDOMEN: Soft, non-tender. No signs of distention. No rebound no guarding, and no masses palpated. Bowel sounds are normal. EXTREMITIES: FROM in all major joints, no edema, no cyanosis or clubbing. clamp on right arm fistula, patient has good pulses, good cap refill, patient is neurovascularly intact with no active bleeding. NEURO: Alert and oriented x 3. No acute neurological deficits. Speech is normal and follows commands. SKIN: Dry and warm Triage Information Reviewed: Yes Vital Signs On Initial Exam: Initial Vitals Temp Pulse Resp BP Pulse Ox 97.8 F 63 18 158/80 99 03/27/19 10:18 03/27/19 10:18 03/27/19 10:18 03/27/19 10:18 03/27/19 10:18 Vital Signs Reviewed: Yes Diagnostics - Vital Signs Vital Signs Temp Pulse Resp BP Pulse Ox 03/27/19 10:18 97.8 F 63 18 158/80 99 - Laboratory Lab Statement: Any lab studies that have been ordered have been reviewed, and results considered in the medical decision making process. Re-Evaluation - Re-Evaluation First Eval Re-Evaluation Time: 11:43 Change: Improved Comment: Patient was observed for approximately 2 hours and the bleeding stopped. Therefore the patient will be discharged home with follow-up with primary care physician. The patient is hemodynamically stable alert and oriented 3 and is agreeable with discharge. Complex Multi-Symp Course/Dx Assessment/Plan: This patient is a 73-year-old male who presents to the emergency department after he was transferred from the dialysis suite with a chief complaint of bleeding from the AV fistula. Patient had hemodialysis today. There are no other complaints. Past medical history significant for CAD , hypertension, dyslipidemia, end-stage renal disease on hemodialysis, non-STEMI , adenocarcinoma of the lung. In the physical exam the bleeding has stopped. The patient had a clamp but the patient has good pulses, good capillary refill and the right upper extremity is neurovascularly intact. I placed some Surgicel in the site of the needle puncture and I applied some dressing. The patient is being observed. Patient was observed for approximately 2 hours and the bleeding stopped. Therefore the patient will be discharged home with follow -up with primary care physician. The patient is hemodynamically stable alert and oriented 3. - Diagnoses Provider Diagnoses: Hemorrhage of arteriovenous fistula Discharge - Sign-Out/Discharge Documenting (check all that apply): Patient Departure - discharge Patient Received Moderate/Deep Sedation with Procedure: No - Discharge Plan Condition: Stable Disposition: HOME Patient Education Materials: Arteriovenous Fistula Creation for Hemodialysis ( [place]) Referrals: Jimbo Diaz MD [Primary Care Provider] - 3 Days Additional Instructions: RETURN TO ED FOR ANY NEW OR WORSENING SYMPTOMS. FOLLOW UP WITH YOUR PRIMARY CARE PHYSICIAN WITHIN THREE DAYS. - Billing Disposition and Condition Condition: STABLE Disposition: Home - Attestation Statements Document Initiated by Conrado: Yes Documenting Scribe: CAMRON BERMEO Provider For Whom Conrado is Documenting (Include Credential): JIMBO CARDOZO MD Scribe Attestation: CAMRON Marsh, scribed for JIMBO CARDOZO MD on 03/28/19 at 1048. Scribe Documentation Reviewed: Yes Provider Attestation: The documentation as recorded by the CAMRON shankar accurately reflects the service I personally performed and the decisions made by me, JIMBO CARDOZO MD Status of Scribe Document: Viewed
[2019-03-27 11:52] VITALS: BP 149/73
== END 2019-03-27 11:51 | disposition home or self-care (01) ==
LOC: ED 10:14
DX: T82.838A Hemorrhage due to vascular prosthetic devices, implants and grafts, initial encounter (principal); E11.22 Type 2 diabetes mellitus with diabetic chronic kidney disease; I13.2 Hypertensive heart and chronic kidney disease with heart failure and with stage 5 chronic kidney disease, or end stage renal disease; I50.9 Heart failure, unspecified; N18.6 End stage renal disease; Z99.2 Dependence on renal dialysis; I25.2 Old myocardial infarction; E78.5 Hyperlipidemia, unspecified; J45.909 Unspecified asthma, uncomplicated; D64.9 Anemia, unspecified; K58.9 Irritable bowel syndrome, unspecified; K21.9 Gastro-esophageal reflux disease without esophagitis; F41.9 Anxiety disorder, unspecified; F32.9 Major depressive disorder, single episode, unspecified; Z88.8 Allergy status to other drugs, medicaments and biological substances; Z88.6 Allergy status to analgesic agent; Z85.118 Personal history of other malignant neoplasm of bronchus and lung; Z86.718 Personal history of other venous thrombosis and embolism; Z95.1 Presence of aortocoronary bypass graft; Z90.2 Acquired absence of lung [part of]; Z87.891 Personal history of nicotine dependence
CPT/HCPCS: 99282

== ENCOUNTER 2019-08-09 11:52 | Emergency (ER) | payer MEDICARE | END 2019-08-09 12:06 | disposition left against medical advice (07) | LOC: UCEAST 11:52 | DX: Z53.8 Procedure and treatment not carried out for other reasons (principal) ==

== ENCOUNTER 2019-08-09 12:25 | Emergency (ER) | payer MEDICARE ==
--- NOTE | 2019-08-09 13:41 | ED ---
Upper Extremity Pain - HPI Summary HPI Summary: 74 year old male presents with rash to right arm. He states that he noticed a rash today. Is painful to touch. States had this before and it was just a cellulitis of his old AV fistula site. He denies any fevers or chills. No drainage from area. He went to dialysis today. denies any chest pain or shortness breath. Has no other complaint. - History of Current Complaint Chief Complaint: EDRashSkinAbscess Stated Complaint: LUMP IN RT FOREARM PER PT Time Seen by Provider: 08/09/19 13:09 - Allergies/Home Medications Allergies/Adverse Reactions: Allergies Allergy/AdvReac Type Severity Reaction Status Date / Time naproxen Allergy Intermediate Hives Verified 08/09/19 12:31 metoprolol AdvReac Intermediate See Comment Verified 08/09/19 12:31 PMH/Surg Hx/FS Hx/Imm Hx Endocrine/Hematology History: Reports: Hx Blood Transfusions, Hx Diabetes, Hx Anemia Denies: Hx Thyroid Disease Cardiovascular History: Reports: Hx Angina, Hx Congestive Heart Failure, Hx Coronary Artery Disease - S/P TRIPLE BYPASS 08/23/13, Hx Hypercholesterolemia, Hx Hypertension, Hx Myocardial Infarction, Hx Valvular Heart Disease - Mitral valve disorder, Other Cardiovascular Problems/Disorders - Triple Bypass Denies: Hx Pacemaker/ICD Respiratory History: Reports: Hx Asthma - Exercise Induced IN THE PAST- NONE NOW , Hx Chronic Bronchitis, Hx Lung Cancer, Hx Pleural Effusion - BL, Hx Pulmonary Edema - SMALL POCKET OF FLUID LOWER PORTION OF LUNG, STARTED ZPACK, Hx Seasonal Allergies Denies: Hx Chronic Obstructive Pulmonary Disease (COPD) GI History: Reports: Hx Gastroesophageal Reflux Disease, Hx Gastrointestinal Bleed, Hx Irritable Bowel, Hx Ulcer, Other GI Disorders - Duodenal ulcer repair History: Reports: Hx Acute Renal Failure, Hx Benign Prostatic Hyperplasia, Hx Chronic Renal Failure, Hx Dialysis, Hx Renal Disease - ESRD on HD, Other Problems/Disorders - Bladder Infection Musculoskeletal History: Reports: Hx Arthritis, Hx Back Problems, Hx Orthopedic Injury - Several Fx vertebra between 1-12, Hx Osteoporosis, Other Musculoskeletal History - T12 vertebroplasty/L1 compression fx Sensory History: Denies: Hx Contacts or Glasses, Hx Hearing Aid Opthamlomology History: Denies: Hx Contacts or Glasses Neurological History: Reports: Other Neuro Impairments/Disorders - Back surgery x3 Psychiatric History: Reports: Hx Anxiety, Hx Depression Denies: Hx Panic Disorder - Cancer History Cancer Type, Location and Year: right lung with lobectomy upper lobe Hx Chemotherapy: No Hx Radiation Therapy: No - Surgical History Surgery Procedure, Year, and Place: 3 Back Surgeries ; Open Heart Surgery 2012; left Inguinal Hernia Repair 2010. AV Fistuala ( DIALYSIS) right forearm. 07/10/2016 blood clot removal right lower arm. 07/14/2016 temp arterial fistula neck, closure of right arm fistula. left shoulder repair 2015. TONSILLECTOMY Hx Anesthesia Reactions: No - Immunization History Date of Tetanus Vaccine: Up to Date Date of Influenza Vaccine: 08/09/2019 Immunizations Up to Date: Yes Infectious Disease History: No Infectious Disease History: Denies: Hx Clostridium Difficile, Hx Hepatitis, Hx Human Immunodeficiency Virus (HIV), Hx of Known/Suspected MRSA, Hx Shingles, Hx Tuberculosis, Hx Known/ Suspected VRE, Hx Known/Suspected VRSA, History Other Infectious Disease, Traveled Outside the [place] in Last 30 Days - Family History Known Family History: Positive: Other - mother at age 72 from lung cancer, father HD, at 72 - Social History Alcohol Use: Daily Alcohol Amount: couple glasses of wine Hx Substance Use: No Substance Use Type: Reports: None Hx Tobacco Use: Yes Smoking Status (MU): Former Smoker Type: Cigarettes Amount Used/How Often: smoked for 20 years 1.5ppd Length of Time of Smoking/Using Tobacco: 25 YEARS Have You Smoked in the Last Year: No Review of Systems Negative: Fever Negative: Chest Pain Negative: Shortness Of Breath Positive: Rash All Other Systems Reviewed And Are Negative: Yes Physical Exam Triage Information Reviewed: Yes Vital Signs On Initial Exam: Initial Vitals Temp Pulse Resp BP Pulse Ox 97.7 F 63 14 146/90 99 08/09/19 12:27 08/09/19 12:27 08/09/19 12:27 08/09/19 12:27 08/09/19 12:27 Vital Signs Reviewed: Yes Appearance: Positive: Well-Appearing Skin: Positive: Warm, Dry, Other - redness and warmth to right forearm along old AV fistula, thrill still felt Head/Face: Positive: Normal Head/Face Inspection Eyes: Positive: Normal, Conjunctiva Clear ENT: Positive: Pharynx normal Respiratory/Lung Sounds: Positive: Clear to Auscultation, Breath Sounds Present Cardiovascular: Positive: Normal, RRR Musculoskeletal: Positive: Strength/ROM Intact - right forearm, Other - good pulses Neurological: Positive: Normal Psychiatric: Positive: Normal Diagnostics - Vital Signs Vital Signs Temp Pulse Resp BP Pulse Ox 08/09/19 12:27 97.7 F 63 14 146/90 99 - Laboratory Lab Statement: Any lab studies that have been ordered have been reviewed, and results considered in the medical decision making process. - Ultrasound No standard instances Ultrasound Interpretation Completed By: Radiologist Summary of Ultrasound Findings: IMPRESSION: Soft tissue swelling without evidence of fluid collection in the right antecubital fossa where prior fistula is noted. Course/Dx - Course Course Of Treatment: 74 year old male presents with rash to right arm. He states that he noticed a rash today. Is painful to touch. States had this before and it was just a cellulitis of his old AV fistula site. He denies any fevers or chills. No drainage from area. He went to dialysis today. denies any chest pain or shortness breath. Has no other complaint. On exam has erythema over her old AV fistula site. It is warm to the touch. u/s shows no abscess or clot. will treat with keflex. told follow up with primary. patient understand and agrees with plan. - Diagnoses Differential Diagnosis/HQI/PQRI: Positive: Other - cellulitis, plebitis, dvt, abscess Provider Diagnoses: Cellulitis of right forearm Discharge ED - Sign-Out/Discharge Documenting (check all that apply): Patient Departure Patient Received Moderate/Deep Sedation with Procedure: No - Discharge Plan Condition: Good Disposition: HOME Prescriptions: Cephalexin CAP* [Keflex CAP*] 500 mg PO TID #29 cap Patient Education Materials: Cellulitis (ED) Referrals: Jimbo Diaz MD [Primary Care Provider] - Additional Instructions: take keflex three times a day for 10 days elevate extremity follow up with primary within 3 days for wound check Return to ED if develop any new or worsening symptoms - Billing Disposition and Condition Condition: GOOD Disposition: Home
[2019-08-09] MEDS ORDERED: Cephalexin CAP* 500 MG PO ONE (15:04)
[2019-08-09 15:55] VITALS: BP 136/75
== END 2019-08-09 15:56 | disposition home or self-care (01) ==
LOC: ED 12:25
DX: L03.113 Cellulitis of right upper limb (principal); E11.22 Type 2 diabetes mellitus with diabetic chronic kidney disease; I13.2 Hypertensive heart and chronic kidney disease with heart failure and with stage 5 chronic kidney disease, or end stage renal disease; N18.6 End stage renal disease; D64.9 Anemia, unspecified; I50.9 Heart failure, unspecified; I25.119 Atherosclerotic heart disease of native coronary artery with unspecified angina pectoris; Z95.1 Presence of aortocoronary bypass graft; I25.2 Old myocardial infarction; K21.9 Gastro-esophageal reflux disease without esophagitis; Z99.2 Dependence on renal dialysis; N40.0 Benign prostatic hyperplasia without lower urinary tract symptoms; F41.9 Anxiety disorder, unspecified; F32.9 Major depressive disorder, single episode, unspecified; Z87.891 Personal history of nicotine dependence; Z85.118 Personal history of other malignant neoplasm of bronchus and lung; Z79.82 Long term (current) use of aspirin; Z79.899 Other long term (current) drug therapy; Z88.8 Allergy status to other drugs, medicaments and biological substances
CPT/HCPCS: 99282; A9270-GY

== ENCOUNTER 2019-08-18 11:00 | Emergency (ER) | payer MEDICARE ==
[2019-08-18 11:24] VITALS: BP 106/62
--- NOTE | 2019-08-18 11:29 | UC ---
Skin Complaint HPI - HPI Summary HPI Summary: 74 yo male presents requesting a new prescription. He tells me that he was placed on keflex for cellulitis to his right forearm fistula, but has left the medication in [place]. Last dose was yesterday. He has an appointment with his tool inspector regarding his fistula for 08/22. The redness to his arm has been improving with the keflex. Denies fevers, chills, increase redness or pain. He had dialysis this morning. - History of Current Complaint Chief Complaint: UCUpperExtremity Time Seen by Provider: 08/18/19 11:29 Stated Complaint: MEDICATION REFILL Hx Obtained From: Patient Onset Severity: Moderate Current Severity: Moderate Pain Intensity: 5 Pain Scale Used: 0-10 Numeric - Allergy/Home Medications Allergies/Adverse Reactions: Allergies Allergy/AdvReac Type Severity Reaction Status Date / Time naproxen Allergy Intermediate Hives Verified 08/18/19 11:24 metoprolol AdvReac Intermediate See Comment Verified 08/18/19 11:24 PMH/Surg Hx/FS Hx/Imm Hx - Additional Past Medical History Additional PMH: Kidney failure Cancer Cardiovascular History: Cardiac Disease, Hypertension Psychological History: Anxiety, Depression - Surgical History Surgical History: Yes Surgery Procedure, Year, and Place: 3 Back Surgeries ; Open Heart Surgery 2012; left Inguinal Hernia Repair 2010. AV Fistuala ( DIALYSIS) right forearm. 07/10/2016 blood clot removal right lower arm. 07/14/2016 temp arterial fistula neck, closure of right arm fistula. left shoulder repair 2015. TONSILLECTOMY - Family History Known Family History: Positive: Other - mother at age 72 from lung cancer, father HD, at 72 - Social History Alcohol Use: Daily Alcohol Amount: couple glasses of wine Substance Use Type: None Smoking Status (MU): Former Smoker Type: Cigarettes Amount Used/How Often: smoked for 20 years 1.5ppd Length of Time of Smoking/Using Tobacco: 25 YEARS Have You Smoked in the Last Year: No When Did the Patient Quit Smoking/Using Tobacco: 06/2013 - Immunization History Most Recent Influenza Vaccination: 2017 Most Recent Tetanus Shot: 2011 Most Recent Pneumonia Vaccination: 2013 Review of Systems All Other Systems Reviewed And Are Negative: No Constitutional: Positive: Negative Skin: Positive: Other - Redness right arm Respiratory: Positive: Negative Cardiovascular: Positive: Negative Neurovascular: Positive: Negative Musculoskeletal: Positive: Negative Neurological: Positive: Negative Psychological: Positive: Negative Physical Exam - Summary Physical Exam Summary: GENERAL: NAD. WDWN. No pain distress. SKIN: RIGHT forearm: medial proximal aspect with mild erythema and warmth. No streaking, induration, abscess, or open wound. NECK: Supple. Nontender. No lymphadenopathy. CHEST: No accessory muscle use. Breathing comfortably and in no distress. CV: Pulses intact. Cap refill <2seconds NEURO: Alert. PSYCH: Age appropriate behavior. Triage Information Reviewed: Yes Vital Signs: Initial Vital Signs Temp 97.5 F 08/18/19 11:18 Pulse 64 08/18/19 11:18 Resp 18 08/18/19 11:18 BP 106/62 08/18/19 11:18 Pulse Ox 97 08/18/19 11:18 Vital Signs Reviewed: Yes Course/Dx - Course Course Of Treatment: Cellulitis right forearm. Will write him a new prescription for keflex to get him through to his nephrology appointment on wednesday. Advised that if he gets a fever, chills, increasing redness or pain to go to the ER - Diagnoses Provider Diagnosis: Cellulitis Discharge ED - Sign-Out/Discharge Documenting (check all that apply): Patient Departure All imaging exams completed and their final reports reviewed: No Studies - Discharge Plan Condition: Stable Disposition: HOME Prescriptions: Cephalexin CAP* [Keflex CAP*] 500 mg PO TID #15 cap Patient Education Materials: Cellulitis (ED) Referrals: Jimbo Diaz MD [Primary Care Provider] - Additional Instructions: If you develop a fever, shortness of breath, chest pain, new or worsening symptoms - please call your PCP or go to the ED immediately. Please follow up with your tool inspector as scheduled next week - Billing Disposition and Condition Condition: STABLE Disposition: Home
== END 2019-08-18 11:40 | disposition home or self-care (01) ==
LOC: UCEAST 11:00
DX: L03.113 Cellulitis of right upper limb (principal); Z87.891 Personal history of nicotine dependence; I12.0 Hypertensive chronic kidney disease with stage 5 chronic kidney disease or end stage renal disease; N18.6 End stage renal disease; Z99.2 Dependence on renal dialysis
CPT/HCPCS: 99212; G0463